=== PATIENT | female | born 2000 | race Caucasian/White ===

== ENCOUNTER 2022-09-27 19:24 | Emergency (ER) | payer MEDICAID, OTHER ==
[~2022-09-27] VITALS: Ht 157.5 cm; Wt 46.8 kg
[~2022-09-27 19:24] MED LIST: CYCL-1 PO
[2022-09-27 19:41] VITALS: BP 100/62
[2022-09-27] MEDS ORDERED: ondansetron 4mg rapidly disintigrating tab PO ONE (21:15)
[2022-09-27] MEDS ORDERED: acetaminophen 325mg tablet PO ONE (21:15)
[2022-09-27] MEDS ORDERED: ONDA4TAB12 PO (21:21)
== END 2022-09-27 21:34 | disposition home or self-care (01) ==
LOC: ER 19:25
DX: S06.0X0A Concussion without loss of consciousness, initial encounter (principal); Z79.899 Other long term (current) drug therapy; W22.8XXA Striking against or struck by other objects, initial encounter; Y93.89 Activity, other specified; Y92.89 Other specified places as the place of occurrence of the external cause; Y99.8 Other external cause status
CPT/HCPCS: 99284

== ENCOUNTER 2022-11-13 15:11 | Emergency (ER) | payer MEDICAID ==
[~2022-11-13] VITALS: Ht 157.5 cm; Wt 46.8 kg
[~2022-11-13 15:11] MED LIST changes: +ONDA4TAB12 PO
[2022-11-13 15:18] VITALS: BP 137/88
[2022-11-13] MEDS ORDERED: NAPR-56 PO (16:19)
[2022-11-13] MEDS ORDERED: AMOX-580 PO (16:19)
[2022-11-13] MEDS ORDERED: ketorolac tromethamine 15mg/ml inj. IM ONE (16:20)
== END 2022-11-13 16:54 | disposition home or self-care (01) ==
LOC: ER 15:12
DX: K04.7 Periapical abscess without sinus (principal)
CPT/HCPCS: 96372; 99283; J1885

== ENCOUNTER 2024-06-02 09:30 | Emergency (ER) | payer MEDICAID ==
[~2024-06-02] VITALS: Ht 157.5 cm; Wt 44.0 kg
[~2024-06-02 09:30] MED LIST changes: +ONDA-243 PO; -ONDA4TAB12 PO
[2024-06-02 09:59] VITALS: BP 115/72; PULSE 60; O2SAT 100
[2024-06-02 11:19] LABS: BASOPHILS % (AUTO) 0.3 % (0-1); EOSINOPHILS # (AUTO) 0.1 X10'3 (0-0.9); HEMATOCRIT 38.6 % (35.0-45.0); HEMOGLOBIN 13.3 g/dl (12.0-16.0); LYMPHOCYTES # (AUTO) 1.3 X10'3 (1.1-4.8); LYMPHOCYTES % (AUTO) 16.5 % (21-51); MEAN CORPUSCULAR HEMOGLOBIN 32.1 PG (27.0-31.0); MEAN CORPUSCULAR HGB CONC 34.5 g/dL (33.0-36.5); MEAN CORPUSCULAR VOLUME 93.1 FL (78-98); MEAN PLATELET VOLUME 8.2 FL (7.4-10.4); MONOCYTES # (AUTO) 0.4 X10'3 (0-0.9); MONOCYTES % (AUTO) 4.9 % (2-12); NEUTROPHILS % (AUTO) 77.3 % (42-75); PLATELET COUNT 327 X10'3 (140-440); RED BLOOD COUNT 4.15 X10'6 (4.20-5.60); RED CELL DISTRIBUTION WIDTH 12.7 % (11.5-14.5); WHITE BLOOD COUNT 7.8 X10'3 (4.5-11.0)
[2024-06-02] MEDS ORDERED: ketorolac trometh 30MG/ML vial 30 MG/ML VIAL IM ONE (11:20)
[2024-06-02 11:46] LABS: ALANINE AMINOTRANSFERASE 18 U/L (12-78); ALBUMIN 3.9 G/DL (3.4-5.0); ALBUMIN/GLOBULIN RATIO 1.1 (1.1-1.5); ALKALINE PHOSPHATASE 63 IU/L (46-116); ANION GAP 2 (8-16); BILIRUBIN,TOTAL 0.6 MG/DL (0.1-1.0); BLOOD UREA NITROGEN 11 MG/DL (7-18); BUN/CREATININE RATIO 20.4 (10.0-20.0); CALCIUM 8.5 MG/DL (8.5-10.1); CHLORIDE 105 MMOL/L (99-107); CREATININE 0.54 MG/DL (0.40-0.90); GLUCOSE 80 MG/DL (70-104); SODIUM 137 MMOL/L (135-145); TOTAL CARBON DIOXIDE 30.2 MMOL/L (24-32); TOTAL PROTEIN 7.5 G/DL (6.4-8.2); eCRCL 112 ML/MIN; eGFR > 90 ML/MIN
[2024-06-02 11:50] LABS: ASPARTATE AMINO TRANSFERASE 23 U/L (10-37); POTASSIUM 4.1 MMOL/L (3.5-5.1)
[2024-06-02 12:05] VITALS: RESP 16
[2024-06-02] MEDS: ketorolac trometh 30MG/ML vial 30 MG/ML VIAL IV ONE (12:05)
[2024-06-02] MEDS: ondansetron 4mg rapidly disintigrating tab PO ONE (12:07)
[2024-06-02] MEDS ORDERED: MELO-102 PO (12:15)
[2024-06-02] MEDS ORDERED: HYDR-3965 PO (12:37)
[2024-06-02 12:42] VITALS: TEMP 97.9
== END 2024-06-02 12:45 | disposition home or self-care (01) ==
LOC: ER 09:31
DX: N93.8 Other specified abnormal uterine and vaginal bleeding (principal)
CPT/HCPCS: 36415; 76856; 80053; 84484; 85025; 93976; 96374; 99285; J1885

== ENCOUNTER 2025-01-23 10:45 | Emergency (ER) | payer MEDICAID ==
[~2025-01-23] VITALS: Ht 157.5 cm; Wt 47.7 kg
[~2025-01-23 10:45] MED LIST changes: +MELO-102 PO
[2025-01-23 10:59] VITALS: BP 111/64; PULSE 64; RESP 18; TEMP 97.8; O2SAT 100
[2025-01-23 11:45] LABS: MEAN PLATELET VOLUME 8.2 FL (7.4-10.4); RED CELL DISTRIBUTION WIDTH 13.1 % (11.5-14.5)
[2025-01-23 12:00] LABS: CREATININE 0.65 MG/DL (0.40-0.90); TOTAL CARBON DIOXIDE 24.3 MMOL/L (24-32); eCRCL 100 ML/MIN; eGFR > 90 ML/MIN
--- NOTE | 2025-01-23 13:13 | Physician Documentation ---
History of Present Illness ~ Chief Complaint: Abdominal Pain Stated Complaint: VOMITING/SOME BLOOD Time Seen by MD: 13:05 Primary Medical Doctor: CODY PARRA The patient is Seen today with complaints of nausea and vomiting every morning for about eight months. 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 Patient has no other concern or complaint at this time. She states she has been smoking cannabis for 10 years or so. She has no other concern or complaint at this time. She denies any fever or chills. Medication Reconciliation Allergies: Coded Allergies: No Known Allergies (Unverified , 01/23/25) Scheduled Meloxicam (Meloxicam), 1 TAB PO DAILY Olanzapine (Olanzapine), 1 TAB PO HS Scheduled PRN Cyclobenzaprine* (Cyclobenzaprine*), 0.5 TABLET PO HS PRN for muscle spasms ONDANSETRON ODT 4mg tablet (Ondansetron Odt), 1 TABLET PO Q6H PRN for nausea/vomiting ONDANSETRON ODT 4mg tablet (Ondansetron Odt), 1-2 TAB PO TID PRN for nausea/vomiting Past Medical History Past Medical History: No Pertinent History Past Surgical History: no surgical history Alcohol Use: None Lives with: Family Lives In: Home Occupation: employed, student Review of Systems Constitutional: Denies: chills, fever, weakness Eyes: Denies: pain, blurred vision ENT: Denies: ear pain, nose pain, throat pain, mouth pain Respiratory: Denies: cough, shortness of breath Cardiovascular: Denies: chest pain, palpitations Gastrointestinal: Denies: abdominal pain, nausea, vomiting Genitourinary: Denies: burning, dysuria Female Genitalia: Denies: vaginal discharge, pelvic pain Neurological: Denies: headache, dizziness Musculoskeletal: Denies: pain, swelling Integumentary: Denies: rash, lesions Allergic/Immunologic: Denies: hives, itching Hematologic/Lymphatic: Denies: no symptoms reported Psychiatric: Denies: depression, anxiety Physical Exam Vital Signs: Temperature: 97.8, Source: Temporal, Heart Rate: 64, Respiratory Rate: 18, BP: 111/64, Pulse Oximetry: 100, Weight: 47.730 Progress Results/Orders Results/Orders Orders - TITUS,JOSEF R PAC Urinalysis, Cult If Indicated (01/23/25 11:01) Hcg, Ur Ql (01/23/25 11:01) Completed Orders - JOSEF TITUS PAC Cbc/Diff (01/23/25 11:01) Amylase (01/23/25 11:01) Lipase (01/23/25 11:01) CMP (01/23/25 11:01) Vital Signs 01/23/25 10:59 Temp 97.8 Pulse 64 Resp 18 B/P (MAP) 111/64 Pulse Ox 100 Laboratory Tests Test 01/23/25 11:17 White Blood Count 6.4 Red Blood Count 4.58 Hemoglobin 14.3 Hematocrit 42.3 Mean Corpuscular Volume 92.3 Mean Corpuscular Hemoglobin 31.2 H Mean Corpuscular Hemoglobin Concent 33.8 Red Cell Distribution Width 13.1 Platelet Count 310 Mean Platelet Volume 8.2 Neutrophils (%) (Auto) 62.3 Lymphocytes (%) (Auto) 29.5 Monocytes (%) (Auto) 6.0 Eosinophils (%) (Auto) 1.3 Basophils (%) (Auto) 0.9 Neutrophils # (Auto) 4.0 Lymphocytes # (Auto) 1.9 Monocytes # (Auto) 0.4 Eosinophils # (Auto) 0.1 Basophils # (Auto) 0.1 CBC Comment Sodium Level 138 Potassium Level 3.8 Chloride Level 106 Carbon Dioxide Level 24.3 Anion Gap 8 Blood Urea Nitrogen 12 Creatinine 0.65 Estimated GFR/1.73 m2 > 90 BUN/Creatinine Ratio 18.5 Glucose Level 90 Calcium Level 8.8 Total Bilirubin 0.9 Aspartate Amino Transf (AST/SGOT) 20 Alanine Aminotransferase (ALT/SGPT) 15 Alkaline Phosphatase 63 Total Protein 7.7 Albumin 4.0 Globulin 3.7 Albumin/Globulin Ratio 1.1 Amylase Level 66 Lipase 27 Chemistry Comments Medical Decision Making Findings The patient is Seen today with complaints of nausea and vomiting every morning for about eight months. 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 Patient has no other concern or complaint at this time. She states she has been smoking cannabis for 10 years or so. She has no other concern or complaint at this time. She denies any fever or chills. Patient was given prescription for Zofran and Zyprexa to be taken as prescribed. I highly advised patient discontinue use of cannabis as I feel very strongly this is contributing to her cannabinoid hyperemesis syndrome. Patient unfortun ately left the ER prior to leaving a urine sample to check a urine test. Patient will return to ED with any worsening, concerning or changing symptoms. Departure Disposition: 01 HOME / SELF CARE / HOMELESS Impression: Primary Impression: Cannabinoid hyperemesis syndrome Condition: Stable Discharge Instructions: Cannabinoid Hyperemesis Syndrome Additional Instructions: Patient was given prescription for Zofran and Zyprexa to be taken as prescribed. I highly advised patient discontinue use of cannabis as I feel very strongly this is contributing to her cannabinoid hyperemesis syndrome. Patient unfor tunately left the ER prior to leaving a urine sample to check a urine test. Patient will return to ED with any worsening, concerning or changing symptoms. Referrals: NO PRIMARY CARE PROVIDER (PCP) Prescriptions ONDANSETRON ODT 4mg tablet (ONDANSETRON ODT) 4 Mg Tab.rapdis 1-2 TAB PO TID PRN for nausea/vomiting for 4 Days, #24 TAB 0 Refills Prov: JOSEF TITUS 01/23/25 Olanzapine (Olanzapine) 10 Mg Tablet 1 TAB PO HS for 10 Days, #10 TAB 0 Refills Prov: JOSEF TITUS 01/23/25 Signature Scribe Signature: No scribe Attestation: No scribe JOSEF TITUS Jan 23, 2025 13:13
[2025-01-23] MEDS ORDERED: ONDA-243 PO (13:14)
[2025-01-23] MEDS ORDERED: OLAN-38 PO (13:14)
== END 2025-01-23 17:04 | disposition home or self-care (01) ==
LOC: ER 10:46
DX: R11.10 Vomiting, unspecified (principal); F12.90 Cannabis use, unspecified, uncomplicated; Z79.899 Other long term (current) drug therapy
CPT/HCPCS: 36415; 80053; 82150; 83690; 85025; 99283